=== PATIENT | male | born 1945 | race Caucasian/White ===

== ENCOUNTER → 2017-02-09 | Outpatient (CLI) | payer OTHER | END | disposition home or self-care (01) | LOC: CFH 10:09 | PROVIDERS: ATTEND Specialist | DX: M05.49 Rheumatoid myopathy with rheumatoid arthritis of multiple sites (principal) ==

== ENCOUNTER → 2018-05-04 | Outpatient (CLI) | payer OTHER ==
[~2018-05-04] MED LIST: OMNIPAQUE 350 MG/ML, 100ML BOTTLE ONE
[2018-05-04 16:17] LABS: CREATININE 1.11 mg/dL (0.7-1.3)
== END | disposition home or self-care (01) ==
LOC: RAD 15:13
PROVIDERS: ATTEND Internal Medicine Cardiovascular Disease
DX: I70.0 Atherosclerosis of aorta (principal); I25.10 Atherosclerotic heart disease of native coronary artery without angina pectoris; I10 Essential (primary) hypertension; Z87.891 Personal history of nicotine dependence
CPT/HCPCS: 36415; 71275; 82565; Q9967

== ENCOUNTER 2018-12-13 05:16 | Observation (INO) | payer BC ==
[2018-12-07 16:02] VITALS: BP 136/84
[~2018-12-13] VITALS: Ht 193 cm; Wt 108.1 kg
[~2018-12-13 05:16] MED LIST changes: +ALLO300T PO; +CARV10CP PO; +CARV40CP PO; +HYDR4TAB48 PO; +IRBE75TA10 PO; +NALO25TA PO; -OMNIPAQUE 350 MG/ML, 100ML BOTTLE ONE; +OXYC5TAB3 PO; +ROPI4TAB3 PO; +VENL150T PO
[2018-12-13] MEDS ORDERED: LACTATED RINGERS 1,000 ML IV SCH ×2 (05:56→15:00)
[2018-12-13] MEDS ORDERED: OXYMETAZOLINE NASAL SPRAY 0.05%, 15ML ONE (06:26)
[2018-12-13] MEDS ORDERED: BACITRACIN OINT 500U/GM, 15 GM ONE (06:26)
[2018-12-13] MEDS ORDERED: EPINEPHRINE 1 MG/ML, 1ML ONE (06:26)
[2018-12-13] MEDS ORDERED: LIDOCAINE 1%-EPI 1:100K, 30ML ONE (06:26)
[2018-12-13] MEDS ORDERED: FLUORESCEIN SODIUM 500 MG/5 ML ONE (06:26)
[2018-12-13] MEDS ORDERED: BACITRACIN 50,000 UNIT ONE (06:26)
[2018-12-13] MEDS ORDERED: MIDAZOLAM 1 MG/ML, 2ML ONE (06:40)
[2018-12-13] MEDS ORDERED: FENTANYL PF 100 MCG/2ML ONE ×2 (06:40→08:54)
[2018-12-13] MEDS ORDERED: GLYCOPYRROLATE 0.2MG/1ML, 5ML ONE (07:09)
[2018-12-13] MEDS ORDERED: CEFAZOLIN 1,000 MG ONE (07:09)
[2018-12-13] MEDS ORDERED: EPHEDRINE 50 MG/ML, 1ML ONE (07:09)
[2018-12-13] MEDS ORDERED: DEXAMETHASONE 4 MG/ML, 1ML ONE (07:09)
[2018-12-13] MEDS ORDERED: NEOSTIGMINE 1 MG/ML, 10ML ONE (07:09)
[2018-12-13] MEDS ORDERED: SUCCINYLCHOLINE 20 MG/ML, 10ML ONE (07:09)
[2018-12-13] MEDS ORDERED: ONDANSETRON 2MG/ML, 2ML ONE (07:09)
[2018-12-13] MEDS ORDERED: ROCURONIUM 10 MG/ML,10ML ONE (07:09)
[2018-12-13] MEDS ORDERED: PROPOFOL 10 MG/ML, 20ML ONE (07:09)
[2018-12-13] MEDS ORDERED: EPINEPHRINE TOPICAL SOLN 1 MG/ML, 30ML ONE (07:29)
[2018-12-13] MEDS ORDERED: MEPERIDINE/PF 25MG/0.5ML IVPush PRN (08:00)
[2018-12-13] MEDS ORDERED: HYDROmorphone 1 MG/ML, 1ML IV PRN (08:00)
[2018-12-13] MEDS ORDERED: LABETALOL 5MG/ML, 20ML IV PRN (08:00)
[2018-12-13] MEDS ORDERED: OXYcodone 5 MG/5 ML ORAL.SOL UDC PO PRN (08:00)
[2018-12-13] MEDS ORDERED: METOCLOPRAMIDE 5 MG/ML, 2ML IV PRN (08:00)
[2018-12-13] MEDS ORDERED: ALBUTEROL SULFATE 2.5 MG/3 ML NPPB PRN (08:00)
[2018-12-13] MEDS ORDERED: PROMETHAZINE 25 MG/ML, 1ML IV PRN (08:00)
[2018-12-13] MEDS ORDERED: hydrALAzine 20 MG/ML, 1ML IV PRN (08:00)
[2018-12-13] MEDS ORDERED: KETOROLAC 30 MG/1 ML IV PRN (08:00)
[2018-12-13] MEDS ORDERED: ONDANSETRON 2MG/ML, 2ML IVPush PRN ×3 (08:00→15:00)
[2018-12-13] MEDS ORDERED: OXYcodone 5 MG/5 ML ORAL.SOL UDC ONE (08:54)
[2018-12-13] MEDS: FENTANYL PF 100 MCG/2ML IV PRN ×2 (09:01→09:12)
[2018-12-13] MEDS: LACTATED RINGERS 1,000 ML IV SCH ×2 (12:30→22:30)
[2018-12-13] MEDS ORDERED: ACETAMINOPHEN 325 MG TABLET PO PRN (12:30)
[2018-12-13] MEDS: HEPARIN 5,000 UNITS/ML, 1ML SQ SCH ×2 (13:13→21:31)
[2018-12-13 14:25] VITALS: BP 107/67
[2018-12-13] MEDS: ROPINIROLE 1MG TABLET PO SCH ×2 (16:00→21:34)
[2018-12-13 19:11] VITALS: BP 124/78
[2018-12-14 00:10] VITALS: BP 112/63
[2018-12-14 04:05] VITALS: BP 121/75
[2018-12-14] MEDS: HEPARIN 5,000 UNITS/ML, 1ML SQ SCH (05:50)
[2018-12-14 07:00] VITALS: BP 136/80
[2018-12-14] MEDS: ROPINIROLE 1MG TABLET PO SCH (08:15)
[2018-12-14] MEDS: LACTATED RINGERS 1,000 ML IV SCH (08:16)
[2018-12-14] MEDS ORDERED: COREG 40 MG PO SCH (09:00)
[2018-12-14] MEDS ORDERED: MOVANTIK 25 MG PO SCH (09:00)
[2018-12-14] MEDS ORDERED: IRBESARTAN 150 MG TABLET PO SCH (09:00)
[2018-12-14] MEDS ORDERED: VENLAFAXINE 75 MG CAP ER PO SCH (09:00)
[2018-12-14] MEDS ORDERED: ALLOPURINOL 300 MG TABLET PO SCH (09:00)
[2018-12-14] MEDS ORDERED: CARVEDILOL 10 MG PO SCH (09:00)
[2018-12-14] MEDS ORDERED: AMOX1TAB64 PO (10:01)
[2018-12-14] MEDS ORDERED: HEPARIN 5,000 UNITS/ML, 1ML SQ SCH (12:00)
== END 2018-12-14 10:14 | disposition home or self-care (01) ==
LOC: OUT 05:16 → 4NOR 14:00 → OUT 23:05 → DCLOUNGE 12-14 09:58
PROVIDERS: ADMIT Otolaryngology; ATTEND Otolaryngology
DX: J32.9 Chronic sinusitis, unspecified (principal); I25.10 Atherosclerotic heart disease of native coronary artery without angina pectoris; I10 Essential (primary) hypertension; M06.9 Rheumatoid arthritis, unspecified
CPT/HCPCS: 31255; 31256; 31267; 87070; 87075; 87077; 87186; 87205; 88304; 96372; G0378; J0330; J0690; J1100; J1644; J2250; J2405; J2704; J2710; J3010; J3490; J7120; J0171